=== PATIENT | female | born 1995 | race Caucasian/White ===

== ENCOUNTER 2018-10-05 18:42 | Emergency (ER) | payer OTHER ==
[~2018-10-05] VITALS: Ht 154.9 cm; Wt 45.4 kg
[2018-10-05 18:51] VITALS: BP 133/77
--- NOTE | 2018-10-05 20:33 | NUR ---
pt ambulatory to bed 4
--- NOTE | 2018-10-05 20:51 | NUR ---
Dr. Polk evaluating patient at bedside.
[2018-10-05] MEDS ORDERED: KETOROLAC 30 MG/ML VIAL IM ONE (21:05)
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
[2018-10-05 21:53] VITALS: BP 104/77
--- NOTE | 2018-10-05 21:53 | NUR ---
Patient discharged with v/s stable. Written and verbal after care instructions given and explained. Patient alert, oriented and verbalized understanding of instructions. Ambulatory with steady gait. All questions addressed prior to discharge. ID band removed. Patient advised to follow up with PMD. Rx of Naprosyn and Flexeril given. Patient educated on indication of medication including possible reaction and side effects. Opportunity to ask questions provided and answered.
== END 2018-10-05 21:53 | disposition home or self-care (01) ==
LOC: MED 18:42
DX: R51 Headache (principal); R68.84 Jaw pain; V89.2XXA Person injured in unspecified motor-vehicle accident, traffic, initial encounter; Y93.89 Activity, other specified; Y92.410 Unspecified street and highway as the place of occurrence of the external cause; Y99.8 Other external cause status
CPT/HCPCS: 96372; 99283; J1885

== ENCOUNTER 2020-12-10 00:11 | Emergency (ER) | payer OTHER ==
[~2020-12-10] VITALS: Ht 154.9 cm; Wt 47.6 kg
[2020-12-10 00:22] VITALS: BP 109/71
--- NOTE | 2020-12-10 00:22 | NUR ---
to bed ambulatory
--- NOTE | 2020-12-10 00:35 | NUR ---
25 YO F BIB SELF WITH C/C OF VAG BLEEDING X2 WKS D/T IUD PER PT-BRIGHT RED WITH CLOTTING. PT STATED SHE HAS HAD IUD IN FOR YRS, THIS IS THE FIRST TIME THIS HAS HAPPENED. STATED SHE FEELS SHE HAS BEEN CRAMPING. PT PLACED IN GOWN. SIDE RAILS X1, BED LOCKED IN LOWEST POSITION. DENIES RX AND HX
[2020-12-10 02:06] LABS: BASOPHILS % (AUTO) 0.5 % (0.0-2.0); EOSINOPHILS # (AUTO) 0.1 K/uL (0-0.4); EOSINOPHILS % (AUTO) 1.4 % (0.0-4.0); HEMATOCRIT 34.9 % (36-48); HEMOGLOBIN 11.2 g/dL (12.0-16.0); LYMPHOCYTES # (AUTO) 1.8 K/uL (2.5-16.5); LYMPHOCYTES % (AUTO) 22.4 % (20.5-51.1); MEAN CORPUSCULAR HEMOGLOBIN 25 pg (27-31); MEAN CORPUSCULAR HGB CONC 32 g/dL (33-37); MEAN CORPUSCULAR VOLUME 76.6 fL (80-94); MONOCYTES # (AUTO) 0.7 K/uL (0.8-1.0); MONOCYTES % (AUTO) 9.1 % (1.7-9.3); NEUTROPHILS # (AUTO) 5.5 K/uL (1.8-7.7); NEUTROPHILS % (AUTO) 66.6 % (42.2-75.2); PLATELET COUNT (AUTO) 264 K/uL (140-450); RED BLOOD CELL COUNT(AUTO) 4.56 MIL/uL (4.20-5.40); RED CELL DISTRIBUTION WIDTH 14.9 % (11.6-13.7); WHITE BLOOD COUNT (AUTO) 8.2 K/uL (4.8-10.8)
[2020-12-10 02:27] LABS: ALBUMIN 4.5 g/dL (3.4-5.0); ANION GAP 13.9 (8-16); CARBON DIOXIDE 26.2 mmol/L (21-32); CREATININE 0.8 mg/dL (0.6-1.3); POTASSIUM 3.1 mmol/L (3.5-5.1); TOTAL BILIRUBIN 0.3 mg/dL (0.0-1.0)
--- NOTE | 2020-12-10 02:49 | NUR ---
US AT BEDSIDE.
[2020-12-10] MEDS ORDERED: POTASSIUM CHLORIDE 10 MEQ TABER PO SCH (03:30)
[2020-12-10] MEDS ORDERED: POTASSIUM CHLORIDE 10 MEQ TABER PO ONE (03:37)
--- NOTE | 2020-12-10 04:07 | NUR ---
pt is awake and alert, sitting up in bed using phone. vss. bed locked in lowest position, side rails x1.
--- NOTE | 2020-12-10 04:09 | NUR ---
Dr. Novoa examining patient.
--- NOTE | 2020-12-10 04:13 | NUR ---
Female Mailer accompanied female patient for Rectal Exam.
[2020-12-10 05:25] VITALS: BP 111/70
--- NOTE | 2020-12-10 05:25 | NUR ---
Patient discharged with v/s stable. Written and verbal after care instructions given and explained. Patient verbalized understanding. Ambulatory with steady gait. All questions addressed prior to discharge. Advised to follow up with PMD.
== END 2020-12-10 05:25 | disposition home or self-care (01) ==
LOC: MED 00:11
DX: N93.9 Abnormal uterine and vaginal bleeding, unspecified (principal); Z30.431 Encounter for routine checking of intrauterine contraceptive device
CPT/HCPCS: 36415; 76830; 80053; 81002; 81025; 85025; 99284